=== PATIENT | male | born 2000 | race Caucasian/White ===

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

== ENCOUNTER 2022-05-04 21:03 | Emergency (ER) | payer OTHER ==
[2022-05-04] MEDS ORDERED: CEPHALEXIN500 M1 PO (23:46)
[2022-05-04] MEDS ORDERED: ANTIBIOTIC28.4 GM T (23:46)
== END 2022-05-05 00:21 | disposition home or self-care (01) ==
LOC: ED 21:03
DX: S06.0X0A Concussion without loss of consciousness, initial encounter (principal); S01.01XA Laceration without foreign body of scalp, initial encounter; M79.672 Pain in left foot; M25.572 Pain in left ankle and joints of left foot; W18.39XA Other fall on same level, initial encounter; Y93.89 Activity, other specified; Y92.89 Other specified places as the place of occurrence of the external cause; Y99.8 Other external cause status

== ENCOUNTER 2022-09-06 01:54 | Emergency (ER) | payer OTHER ==
[~2022-09-06] VITALS: Ht 182.8 cm; Wt 104.3 kg
[~2022-09-06 01:54] MED LIST changes: +ANTIBIOTIC28.4 GM T; +CEPHALEXIN500 M1 PO
[2022-09-06 02:28] LABS: HEMATOCRIT 47.8 % (42.0-52.0); MEAN CELL VOLUME 91.9 fl (80.0-94.0); MEAN CORPUSCULAR HGB 31.9 pg (27.0-31.0); MEAN CORPUSCULAR HGB CONC 34.7 g/dl (33.0-37.0); MEAN PLATELET VOLUME 10.1 fl (9.6-12.3); PLATELET COUNT AUTOMATED 305 10*3/uL (130-400); RED CELL DISTRI WIDTH 12.6 % (0-14.5); WHITE BLOOD COUNT 28.8 10*3/uL (4.8-10.8)
[2022-09-06 02:49] LABS: MANUAL DIFF REFLEX YES
[2022-09-06 02:51] LABS: PLATELET SUFFICIENCY NORMAL (NORMAL); TOTAL CELLS COUNTED 100 #CELLS
[2022-09-06 02:59] LABS: ACT PARTIAL THROMBO TIME 24.2 SECONDS (20.0-32.1)
[2022-09-06 03:17] LABS: ALKALINE PHOSPHATASE 111 U/L (46-116); BUN 9 mg/dl (9-23); CHLORIDE 110 mmol/L (98-107); ETHYL ALCOHOL 103.3 mg/dl (<3); LIPASE 37 U/L (12-53); POTASSIUM 3.2 mmol/L (3.4-5.1); SGPT/ALT 66 U/L (10-49); TOTAL PROTEIN 7.3 gm/dL (6.0-8.0)
== END 2022-09-06 03:30 | disposition short-term general hospital (02) ==
LOC: ED 01:54
PROVIDERS: Emergency Medicine
DX: S93.05XA Dislocation of left ankle joint, initial encounter (principal); T68.XXXA Hypothermia, initial encounter; R78.0 Finding of alcohol in blood; V49.9XXA Car occupant (driver) (passenger) injured in unspecified traffic accident, initial encounter; Y93.89 Activity, other specified; Y92.89 Other specified places as the place of occurrence of the external cause; Y99.8 Other external cause status

== ENCOUNTER 2022-11-11 13:59 | Emergency (ER) | payer OTHER ==
[~2022-11-11] VITALS: Ht 182.8 cm; Wt 83.9 kg
[2022-11-11] MEDS ORDERED: CLINDAMYCIN HC300 MG PO (14:24)
== END 2022-11-11 15:10 | disposition home or self-care (01) ==
LOC: ED 13:59
DX: T81.41XA Infection following a procedure, superficial incisional surgical site, initial encounter (principal); Y92.89 Other specified places as the place of occurrence of the external cause

== ENCOUNTER 2024-04-15 15:43 | Emergency (ER) | payer OTHER ==
[~2024-04-15] VITALS: Ht 195.5 cm; Wt 95.3 kg
[~2024-04-15 15:43] MED LIST changes: +CLINDAMYCIN HC300 MG PO
[2024-04-15] MEDS ORDERED: LEVOFLOXACIN 750 MG TAB PO ONE (16:25)
[2024-04-15] MEDS ORDERED: LEVOFLOXACIN750 M2 PO (16:27)
== END 2024-04-15 16:34 | disposition home or self-care (01) ==
LOC: ED 15:43
DX: J32.9 Chronic sinusitis, unspecified (principal); H66.93 Otitis media, unspecified, bilateral

== ENCOUNTER 2024-07-12 04:38 | Emergency (ER) | payer OTHER ==
[~2024-07-12] VITALS: Ht 182.8 cm; Wt 90.7 kg
[~2024-07-12 04:38] MED LIST changes: +LEVOFLOXACIN750 M2 PO
[2024-07-12] MEDS ORDERED: VIBRAMYCIN100 MG PO (04:59)
[2024-07-12] MEDS ORDERED: Doxycycline Hyclate 100 MG CAP PO ONE (05:00)
== END 2024-07-12 05:04 | disposition home or self-care (01) ==
LOC: ED 04:38
DX: S30.861A Insect bite (nonvenomous) of abdominal wall, initial encounter (principal); W57.XXXA Bitten or stung by nonvenomous insect and other nonvenomous arthropods, initial encounter; Y93.89 Activity, other specified; Y92.89 Other specified places as the place of occurrence of the external cause; Y99.8 Other external cause status

== ENCOUNTER 2024-07-26 15:11 | Emergency (ER) | payer OTHER ==
[~2024-07-26] VITALS: Ht 182.8 cm; Wt 86.2 kg
[~2024-07-26 15:11] MED LIST changes: +VIBRAMYCIN100 MG PO
== END 2024-07-26 16:58 | disposition home or self-care (01) ==
LOC: ED 15:11
DX: U07.1 COVID-19 (principal)